=== PATIENT | male | born 1955 | race Caucasian/White ===

== ENCOUNTER → 2021-06-04 10:14 | Outpatient (BNVA) | payer MEDICARE, BC, SELFPAY | PROVIDERS: Family Provider Internal Medicine; PCP Family Medicine; Referring Provider Family Medicine; Visit Provider Specialist | DX: R51.9 Headache, unspecified (principal); G89.29 Other chronic pain; R20.0 Anesthesia of skin; R20.2 Paresthesia of skin; Z82.49 Family history of ischemic heart disease and other diseases of the circulatory system; Z87.891 Personal history of nicotine dependence | CPT/HCPCS: 36415; 70450; 70496; 70498; 80053; 84443; 85025; 85651; 86140; 99204; 99205 ==

== ENCOUNTER 2021-06-04 12:03 | Outpatient (CLI) | payer MEDICARE, BC, SELFPAY ==
--- NOTE | 2021-06-04 12:00 | CT_ITS ---
WS: [id number] CT HEAD NONCONTRAST HISTORY: Z82.49 - Family history of ischemic heart disease and other... TECHNIQUE: Contiguous axial imaging performed through the brain in 2.5 mm imaging. Bone and soft tiss ue windows. Sagittal and coronal reformats reviewed. All CT scans at [facility] use at least one of these dose optimization techniques: automated exposure control; mA and/or kV adjustment per pa tient size (includes targeted exams where dose is matched to clinical indication); or iterative recon struction. DLP: 952.7 mGy.cm COMPARISON: None available. No acute intracranial hemorrhage, midline shift or mass effect. No atrophy or prior infarcts or herniation. Small lacunar infarct in the anterior LEFT internal caps ule. Ventricles: Normal size with no hydrocephalus. No inferior displacement of cerebellar tonsils. Paranasal sinuses: Mucous retention cyst in the anterior LEFT maxillary sinus. Mild mucoperiosteal th ickening in the ethmoid air cells. Mastoid air cells: Well pneumatized. Calvarium and scalp: Skull is intact with no soft tissue edema or swelling. CT/CT head wo con* [id number] IMPRESSION: 1. No acute intracranial hemorrhage or edema. 2. Small lacunar infarct anterior limb LEFT internal capsule. 3. Mild mucoperiosteal thickening ethmoid air cells.
--- NOTE | 2021-06-04 12:10 | CT_ITS ---
WS: [id number] CT ANGIOGRAM CEREBRAL AND CAROTID ARTERIES HISTORY: R51.9 - Headache, unspecified TECHNIQUE: CT angiogram is performed of the carotid and cerebral arteries. During arterial injection imaging is obtained from the skull vertex to the aortic arch in 1.25 mm imaging. Coronal and sagittal reformats are submitted. Additional multi planar reformats of the carotid and cerebral arteries are submitted, MIP imaging also reviewed. NASCET criteria utilized. [facility] at least one of these dose optimization techniques: automated exposure control; mA and/or kV adjust ment per patient size (includes targeted exams where dose is matched to clinical indication); or iter ative reconstruction. CONTRAST: Omnipaque 350; 95 mL IV. DLP: 2321.55 mGy.cm COMPARISON: None available. Carotid Angiogram: Right carotid: Common carotid artery: Tortuous carotid artery with scattered plaque. No high-grade stenosis. Internal carotid artery: Calcified plaque and intimal thickening. No high-grade stenosis. External carotid artery: Patent. Left carotid: Common carotid artery: Scattered plaque. Carotid normally arises from the aorta. There is significant motion artifact but no obvious stenosis or thrombus. Internal carotid artery: Motion artifact with atherosclerotic plaque. No high-grade stenosis. External carotid artery: Patent. Right vertebral artery: Unremarkable. Left vertebral artery: Unremarkable. Arises normally from the subclavian artery. Subclavian arteries: No stenosis or significant abnormality. Upper thorax: Normal. Thyroid gland: Normal. Osseous structures: Unremarkable. CEREBRAL ANGIOGRAM: Intracranial vertebral arteries: Normal with no significant atherosclerosis. Basilar artery: No significant stenosis or occlusion. No aneurysm. Intracranial Internal carotid arteries: Scattered plaque bilaterally. No high-grade stenosis. Middle cerebral arteries: Normal. Anterior cerebral arteries and ACOM: Normal. Posterior cerebral arteries and PCOM's: Normal. Dural venous sinuses are normally enhancing. Mastoid air cells: Normal. Paranasal sinuses: Bilateral ethmoid air cell disease and no LEFT maxillary sinus mucous retention cy st. Calvarium: Normal. CT/CT angio headneck* [id number] IMPRESSION: 1. Motion artifact in the cervical carotid arteries but no high-grade stenosis . Stenosis less than 50% of the ICAs. 2. Mild atherosclerotic plaque within the cavernous and supraclinoid portion o f the intracranial carotid arteries. No high-grade stenosis. 3. No aneurysms.
[2021-06-04 12:43] LABS: Basophils # 0.1 10^3/uL (0.0-0.1); Basophils % 0.8 %; Eosinophils # 0.1 10^3/uL (0.0-0.8); Eosinophils % 1.8 %; Hematocrit 43.3 % (42.0-52.0); Hemoglobin 14.6 g/dL (11.7-16.6); Lymphocytes # 1.4 10^3/uL (0.8-4.8); Lymphocytes % 21.7 %; Mean Corpuscular HGB Conc 33.7 g/dL (30.0-36.0); Mean Corpuscular Hemoglobin 30.2 pg (28.0-34.0); Mean Corpuscular Volume 89.6 fl (80-94); Mean Platelet Volume 9.4 fL (7.4-10.4); Monocytes # 0.8 10^3/uL (0.2-0.9); Monocytes % 12.3 %; Neutrophils % 63.1 %; Nucleated Red Blood Cells % 0 %; Platelet Count 158 10^3/cmm (130-400); Red Blood Count 4.83 10^6/uL (4.1-5.3); Red Cell Distribution Width 12.3 % (12.1-15.1); White Blood Count 6.5 10^3/uL (4.0-10.0)
[2021-06-04 13:22] LABS: Alanine Aminotransferase 17 U/L (0-41); Albumin Level 4.3 g/dL (3.5-5.2); Alkaline Phosphatase 64 IU/L (40-130); Anion Gap 11.5 (5-19); Aspartate Amino Transferase 16 U/L (0-40); Blood Urea Nitrogen 18 mg/dL (8-23); C Reactive Protein 4.6 mg/L (0.0-4.9); Calcium 9.1 mg/dL (8.5-10.5); Carbon Dioxide 28 mmol/L (22-29); Chloride 105 mmol/L (98-107); Globulin 2.7 g/dL (1.3-4.6); Glomerular Filtration Rate 97.3 mL/min (90-130); Glucose 102 mg/dL (65-115); Osmolality Calculated 292 mOsm/kg (285-295); Potassium 4.5 mmol/L (3.5-5.1); Sodium 140 mmol/L (136-145); Thyroid Stimulating Hormone 0.45 uIU/mL (0.27-4.20); Total Bilirubin 0.4 mg/dL (0.15-1.2)
[2021-06-04] MEDS: iohexol 350 mg/mL 100 mL Btl IV (13:33)
[2021-06-06 12:43] LABS: Erythrocyte Sedimentation Rate 6 mm/hr (0-10)
== END 2021-06-04 12:04 | disposition home or self-care (01) ==
PROVIDERS: PCP Family Medicine; Visit Provider Specialist
DX: Z82.49 Family history of ischemic heart disease and other diseases of the circulatory system (principal); G89.29 Other chronic pain; R51.9 Headache, unspecified; R20.0 Anesthesia of skin; R20.2 Paresthesia of skin
CPT/HCPCS: 36415; 70450; 70496; 70498; 80053; 84443; 85025; 85651; 86140

== ENCOUNTER → 2021-09-03 10:39 | Outpatient (BNVA) | payer MEDICARE, BC, SELFPAY | PROVIDERS: PCP Family Medicine; Visit Provider Specialist | DX: R51.9 Headache, unspecified (principal); I65.29 Occlusion and stenosis of unspecified carotid artery; Z87.891 Personal history of nicotine dependence | CPT/HCPCS: 99213 ==